=== PATIENT | female | born 1990 | race African-American/Black ===

== ENCOUNTER 2021-10-15 17:03 | Emergency (ER) | payer SELFPAY ==
[~2021-10-15] VITALS: Ht 162.6 cm; Wt 61.3 kg
[2021-10-15] MEDS ORDERED: DOXYCYCL HYC100 M4 PO ×2 (18:51→20:06)
[2021-10-15 20:20] VITALS: BP 116/63
== END 2021-10-15 20:20 | disposition home or self-care (01) | DRG 313 ==
LOC: ED 17:03
DX: R07.89 Other chest pain (principal); L98.9 Disorder of the skin and subcutaneous tissue, unspecified

== ENCOUNTER 2022-11-21 18:14 | Emergency (ER) | payer OTHER ==
[~2022-11-21] VITALS: Ht 162.6 cm; Wt 59.1 kg
[~2022-11-21 18:14] MED LIST: DOXYCYCL HYC100 M4 PO
[2022-11-21 18:24] VITALS: BP 128/85
[2022-11-21 18:30] VITALS: BP 115/79
[2022-11-21 18:55] LABS: BASO% 0.3 % (0-3); EOS% 0.3 % (0-8); HEMOGLOBIN 10.8 g/dl (12.0-16.0); IMMATURE GRANULOCYTES 0.1 % (0.0-5.0); LYMPH% 15.1 % (15-41); MEAN CELL VOLUME 71.7 fL CALC (80.0-100.0); MEAN CORPUSCULAR HGB 20.9 pG CALC (26.0-32.0); MEAN CORPUSCULAR HGB CONC 29.2 g/dL CAL (32.0-36.0); MONO% 5.3 % (2-13); NEUT# 7.2 thou/uL (2.00-7.15); NEUT% 78.9 % (42-76); RED BLOOD COUNT 5.16 mill/uL (4.20-5.60); RED CELL DISTRI WIDTH 18.7 % (11.5-15.5)
[2022-11-21 18:59] VITALS: BP 113/71
[2022-11-21 19:00] VITALS: BP 105/70
[2022-11-21 19:07] LABS: ALBUMIN 4.9 g/dL (3.2-5.0); ALKALINE PHOSPHATASE 86 u/l (38-126); ANION GAP 15 (6-22 (CALC)); BILIRUBIN, TOTAL 0.3 mg/dL (0.0-1.4); BUN 6 mg/dL (7-17); BUN/CREATININE RATIO 8 (12-20 (CALC)); CARBON DIOXIDE 22 mmol/l (22-30); CHLORIDE 108 mmol/l (95-108); CREATININE 0.8 mg/dL (0.5-1.0); GFR FOR AFR.AMER. > 60 ML/MIN (>=60 (CALC)); GFR OTHER RACES > 60 ML/MIN (>=60 (CALC)); POTASSIUM 3.8 mmol/l (3.5-5.1); SGOT/AST 44 u/l (14-36); SODIUM 141 mmol/l (137-146); TOTAL PROTEIN 8.9 g/dL (6.3-8.2)
[2022-11-21 19:30] VITALS: BP 104/70
[2022-11-21 20:01] LABS: URINE BILIRUBIN - DIPSTICK NEGATIVE (NEGATIVE); URINE BLOOD DIPSTICK LARGE (NEGATIVE); URINE GLUCOSE - DIPSTICK NEGATIVE (NEGATIVE); URINE KETONE TRACE mg/dL (NEGATIVE); URINE LEUK ESTERASE NEGATIVE (NEGATIVE); URINE PH 5.5 (4.5-8.0); URINE PROTEIN - DIPSTICK 30 mg/dL (NEG-TRACE); URINE SPECIFIC GRAVITY >=1.030; URINE UROBILINOGEN - DIPSTICK 0.2 E.U./dL (0.2)
[2022-11-21 20:02] LABS: URINE COLOR RED; URINE NITRITE - DIPSTICK NEGATIVE (Negative); URINE RBC TNTC RBC/hpf (0-5)
[2022-11-21 20:55] VITALS: BP 104/70
== END 2022-11-21 21:05 | disposition home or self-care (01) ==
LOC: ED 18:14
PROVIDERS: Emergency Medicine
DX: R42 Dizziness and giddiness (principal); F19.10 Other psychoactive substance abuse, uncomplicated; Z20.822 Contact with and (suspected) exposure to COVID-19